=== PATIENT | female | born 1980 | race African-American/Black ===

== ENCOUNTER 2022-12-17 23:26 | Emergency (ER) | payer MEDICAID, OTHER ==
[~2022-12-17] VITALS: Ht 152.4 cm; Wt 88.5 kg
[2022-12-17 23:38] VITALS: BP_SYST 182; PULSE 83; RESP 18; TEMP 97.7; O2SAT 100
--- NOTE | 2022-12-17 23:53 | NUR ---
PT PRESENTS TO ED WITH LOWER ABD PAIN 10/10 SHARP PAIN THAT STARTED AT 2300 PT STATES SHE HAS DIZZINESS AND NAUSEA, MD MADE AWARE OF PAIN LAST ORAL INTAKE AT 2030 HX 5 C SECTIONS BILATERAL PARTIAL BREAST TISSUE REMOVAL SPOUSE AT BEDSIDE.
--- NOTE | 2022-12-17 23:55 | NUR ---
ER at bedside examining patient.
[2022-12-18] MEDS ORDERED: LABETALOL HCL 20 MG/4 ML CARTRIDGE IVP ONE
[2022-12-18] MEDS ORDERED: MORPHINE 4 MG INJ. 4 MG/ML VIAL IVP ONE (00:15)
[2022-12-18] MEDS ORDERED: iohexoL 350 mgI/mL, 100 ML INFUS..BTL IV ONE (00:28)
[2022-12-18] MEDS ORDERED: ONDANSETRON HCL 4 MG/2 ML VIAL ONE (00:36)
[2022-12-18 00:39] LABS: BASOPHILS # (AUTO) 0.1 K/uL (0.0-0.2); BASOPHILS % (AUTO) 0.6 % (0.0-2.0); EOSINOPHILS # (AUTO) 0.2 K/uL (0.0-0.4); HEMATOCRIT 40.4 % (36-48); HEMOGLOBIN 13.1 g/dL (12.0-16.0); LYMPHOCYTES # (AUTO) 2.8 K/uL (1.0-5.5); LYMPHOCYTES % (AUTO) 30.5 % (20.5-51.5); MEAN CORPUSCULAR HEMOGLOBIN 26 pg (27-31); MEAN CORPUSCULAR HGB CONC 33 % (32-36); MEAN CORPUSCULAR VOLUME 79 fL (79.0-98.0); MONOCYTES # (AUTO) 0.6 K/uL (0.0-1.0); MONOCYTES % (AUTO) 6.1 % (1.7-9.3); NEUTROPHILS # (AUTO) 5.6 K/uL (1.8-7.7); NEUTROPHILS % (AUTO) 60.8 % (40.0-70.0); PLATELET COUNT (AUTO) 296 K/uL (130-430); RED BLOOD CELL COUNT(AUTO) 5.09 MIL/uL (4.2-6.2); RED CELL DISTRIBUTION WIDTH 14.1 % (9.0-15.0); WHITE BLOOD COUNT (AUTO) 9.2 K/uL (4.8-10.8)
[2022-12-18 00:45] LABS: ANION GAP 8 (5-15); CALCIUM 8.7 mg/dL (8.4-11.0); CHLORIDE 102 mmol/L (98-107); CREATININE 0.98 mg/dL (0.55-1.30); GFR AFRICAN AMERICAN 81 mL/min (>90); GLUCOSE 258 mg/dL (74-106); UREA NITROGEN, BLOOD 10 mg/dL (8-21)
[2022-12-18] MEDS ORDERED: ONDANSETRON HCL 4 MG/2 ML VIAL IVP ONE (00:45)
[2022-12-18 00:50] LABS: BILIRUBIN,URINE NEGATIVE (NEGATIVE); BLOOD, URINE NEGATIVE (NEGATIVE); CLARITY/URINE CLEAR (CLEAR); COLOR,URINE YELLOW (YELLOW); GLUCOSE,URINE 2+ (NEGATIVE); KETONES,URINE NEGATIVE (NEGATIVE); LEUKOCYTE ESTERASE ,URINE NEGATIVE (NEGATIVE); NITRITE, URINE NEGATIVE (NEGATIVE); PH,URINE 7.5 (5.0-8.0); PROTEIN URINE NEGATIVE (NEGATIVE); UROBILINOGEN,URINE 0.2 (0.2-1.0)
[2022-12-18 00:53] LABS: ALANINE AMINOTRANSFERASE 7 U/L (12-78); ALBUMIN 3.6 g/dL (3.4-4.8); ASPARTATE AMINOTRANSFERASE 13 U/L (10-37); TOTAL BILIRUBIN 0.3 mg/dL (0.0-1.0)
[2022-12-18] MEDS ORDERED: hydrALAZINE HCL 20 MG/ML VIAL IVP ONE (01:45)
--- NOTE | 2022-12-18 01:47 | NUR ---
informed that blood pressure is 154/97. Dr TIPTON STATED DO NOT GIVE HYDRALAZINE AT THIS TIME
--- NOTE | 2022-12-18 03:00 | NUR ---
ER at bedside examining patient.
[2022-12-18] MEDS ORDERED: METF-863 PO (03:22)
[2022-12-18] MEDS ORDERED: LISI1TAB57 PO (03:22)
[2022-12-18] MEDS ORDERED: AMLO5TAB4 PO (03:22)
[2022-12-18 03:35] VITALS: BP_SYST 154; PULSE 75; RESP 18; TEMP 97.7; O2SAT 94
--- NOTE | 2022-12-18 03:47 | NUR ---
Patient given written and verbal discharge instructions and verbalizes understanding. ER MD discussed with patient the results and treatment provided. Patient in stable condition. ID arm band removed. IV catheter removed intact and dressing applied, no active bleeding. Rx of AMLODIPIN BESYLATE NORVASC, LSINOPRIL HCTZ, AND METFORMIN given. Patient educated on HTN AND DIABETES MELLITUS AND NUTRITION and to follow up with PMD. Pain Scale 4. Opportunity for questions provided and answered. Medication side effect fact sheet provided.
== END 2022-12-18 03:35 | disposition home or self-care (01) ==
LOC: SED 23:26
DX: R10.30 Lower abdominal pain, unspecified (principal); R42 Dizziness and giddiness; R11.0 Nausea; E11.9 Type 2 diabetes mellitus without complications; I10 Essential (primary) hypertension; Z79.899 Other long term (current) drug therapy
CPT/HCPCS: 99285; 80053; 83037; 85025; 87040; 84484; 36415; 83605; 81003; 71275; 96374; 96375; 74175; 72191; 76376; Q9967; J2405; J2270